=== PATIENT | female | born 1990 | race Caucasian/White ===

== ENCOUNTER 2023-06-23 21:09 | Inpatient (IN) | payer MEDICAID ==
[~2023-06-23] VITALS: Ht 167.6 cm; Wt 113.6 kg
[~2023-06-23 21:09] MED LIST: NO HOME MEDS
[2023-06-23 21:39] LABS: BASOPHILS % (AUTO) 0.3 % (0-1); EOSINOPHILS # (AUTO) 0.1 X10'3 (0-0.9); EOSINOPHILS % (AUTO) 1.5 % (0-6); HEMATOCRIT 35.1 % (35.0-45.0); HEMOGLOBIN 11.9 g/dl (12.0-16.0); LYMPHOCYTES # (AUTO) 1.5 X10'3 (1.1-4.8); LYMPHOCYTES % (AUTO) 17.2 % (21-51); MEAN CORPUSCULAR HEMOGLOBIN 30.1 PG (27.0-31.0); MEAN CORPUSCULAR HGB CONC 33.9 g/dL (33.0-36.5); MEAN PLATELET VOLUME 7.4 FL (7.4-10.4); MONOCYTES # (AUTO) 0.7 X10'3 (0-0.9); NEUTROPHILS # (AUTO) 6.5 X10'3 (1.8-7.7); PLATELET COUNT 259 X10'3 (140-440); RED BLOOD COUNT 3.94 X10'6 (4.20-5.60)
[2023-06-23 21:52] LABS: ALANINE AMINOTRANSFERASE 19 U/L (12-78); ALBUMIN/GLOBULIN RATIO 0.7 (1.1-1.5); ALKALINE PHOSPHATASE 90 IU/L (46-116); ANION GAP 10 (8-16); ASPARTATE AMINO TRANSFERASE 13 U/L (10-37); BILIRUBIN,TOTAL 0.4 MG/DL (0.1-1.0); BLOOD UREA NITROGEN 26 MG/DL (7-18); BUN/CREATININE RATIO 25.5 (10.0-20.0); CALCIUM 9.2 MG/DL (8.5-10.1); CHLORIDE 105 MMOL/L (99-107); CREATININE 1.02 MG/DL (0.40-0.90); GLUCOSE 94 MG/DL (70-104); POTASSIUM 3.9 MMOL/L (3.5-5.1); SODIUM 144 MMOL/L (135-145); TOTAL CARBON DIOXIDE 29.5 MMOL/L (24-32); TOTAL PROTEIN 7.5 G/DL (6.4-8.2); eGFR 64 ML/MIN
[2023-06-23] MEDS ORDERED: buprenorphine/naloxone 8MG-2MG SUBlingual film SL STA (23:42)
[2023-06-24] MEDS ORDERED: ondansetron/PF 4mg/2ml inj IV PRN (00:15)
[2023-06-24] MEDS ORDERED: potassium Cl 40MEQ/1/2NS 520ml 520 ML IV PRN (00:15)
[2023-06-24] MEDS ORDERED: magnesium Cl slow-release 64mg tablet PO PRN (00:15)
[2023-06-24] MEDS ORDERED: HYDROcodone/acetaminophen 10/325mg tab PO PRN (00:15)
[2023-06-24] MEDS ORDERED: acetaminophen 325mg tablet PO PRN ×2 (00:15)
[2023-06-24] MEDS ORDERED: potassium Cl 20 mEq SR tablet PO PRN ×2 (00:15)
[2023-06-24] MEDS ORDERED: magnesium hydroxide 30ml (MOM) UD suspension PO PRN (00:15)
[2023-06-24] MEDS ORDERED: magnesium 4gm in 100ml NS 100 ML IV PRN (00:15)
[2023-06-24] MEDS ORDERED: normal saline 1000ml 1,000 ML IV SCH (00:15)
[2023-06-24] MEDS ORDERED: bisacodyl 10mg suppository rectal RC PRN (00:15)
[2023-06-24] MEDS ORDERED: HYDROcodone/acetaminophen 5mg/325mg tablet PO PRN (00:15)
[2023-06-24] MEDS ORDERED: magnesium 2GM in 50ml NS 50 ML IV PRN (00:15)
[2023-06-24] MEDS ORDERED: morphine 2 MG/ML inj. syringe IV PRN ×2 (00:15)
[2023-06-24] MEDS ORDERED: LORazepam 2 mg/ml vial IV ONE (00:35)
[2023-06-24] MEDS ORDERED: VANCOmycin 1250MG/NS 250ml Bag 250 ML IV SCH (01:00)
--- NOTE | 2023-06-24 06:24 | NUR ---
ATTEMPTED TO CALL REPORT FLOOR NURSE UNAVAILABLE
--- NOTE | 2023-06-24 06:40 | NUR ---
SECOND ATTEMPT TO CALL REPORT, NURSE UNAVAILABLE TO TAKE REPORT
[2023-06-24 07:10] VITALS: BP 145/95; PULSE 67; RESP 18; TEMP 98.3; O2SAT 100
[2023-06-24 07:35] VITALS: RESP 20
[2023-06-24 10:00] VITALS: BP 168/83; PULSE 80; RESP 18; TEMP 97; O2SAT 100
[2023-06-24] MEDS: buprenorphine/naloxone 8MG-2MG SUBlingual film SL SCH (10:08)
[2023-06-24] MEDS: linezolid 600mg tablet PO SCH ×2 (16:35→19:31)
[2023-06-24 18:00] VITALS: BP 158/94; PULSE 78; RESP 20; TEMP 98.3; O2SAT 100
--- NOTE | 2023-06-24 18:30 | NUR ---
Report to Gu[facility]
[2023-06-24] MEDS ORDERED: enoxaparin 40mg/0.4ml syringe SQ SCH (20:00)
[2023-06-24] MEDS ORDERED: temazepam 15mg capsule PO PRN (21:00)
[2023-06-24 22:00] VITALS: BP 128/77; PULSE 82; RESP 18; TEMP 98.1; O2SAT 100
--- NOTE | 2023-06-25 02:54 | NUR ---
CERTIFIED HOME HEALTH AIDE documentation: I have reviewed and agree with assessment performed and documented by TAMICA.
[2023-06-25 06:00] VITALS: BP 167/111; PULSE 76; RESP 18; TEMP 98.2; O2SAT 100
[2023-06-25 06:05] LABS: BASOPHILS % (AUTO) 0.5 % (0-1); EOSINOPHILS # (AUTO) 0.1 X10'3 (0-0.9); EOSINOPHILS % (AUTO) 1.2 % (0-6); HEMOGLOBIN 12.1 g/dl (12.0-16.0); LYMPHOCYTES # (AUTO) 1.4 X10'3 (1.1-4.8); LYMPHOCYTES % (AUTO) 18.6 % (21-51); MEAN CORPUSCULAR HEMOGLOBIN 30.1 PG (27.0-31.0); MEAN CORPUSCULAR HGB CONC 33.7 g/dL (33.0-36.5); MEAN CORPUSCULAR VOLUME 89.2 FL (78-98); MONOCYTES # (AUTO) 0.7 X10'3 (0-0.9); MONOCYTES % (AUTO) 8.5 % (2-12); NEUTROPHILS # (AUTO) 5.5 X10'3 (1.8-7.7); NEUTROPHILS % (AUTO) 71.2 % (42-75); PLATELET COUNT 249 X10'3 (140-440); RED BLOOD COUNT 4.03 X10'6 (4.20-5.60); RED CELL DISTRIBUTION WIDTH 13.8 % (11.5-14.5); WHITE BLOOD COUNT 7.7 X10'3 (4.5-11.0)
[2023-06-25 06:22] LABS: ALANINE AMINOTRANSFERASE 14 U/L (12-78); ALBUMIN 2.6 G/DL (3.4-5.0); ALBUMIN/GLOBULIN RATIO 0.6 (1.1-1.5); ALKALINE PHOSPHATASE 84 IU/L (46-116); ANION GAP 6 (8-16); ASPARTATE AMINO TRANSFERASE 18 U/L (10-37); BILIRUBIN,TOTAL 0.7 MG/DL (0.1-1.0); BLOOD UREA NITROGEN 16 MG/DL (7-18); BUN/CREATININE RATIO 20.5 (10.0-20.0); CALCIUM 8.6 MG/DL (8.5-10.1); CHLORIDE 102 MMOL/L (99-107); CREATININE 0.78 MG/DL (0.40-0.90); GLUCOSE 92 MG/DL (70-104); SODIUM 139 MMOL/L (135-145); TOTAL CARBON DIOXIDE 31.2 MMOL/L (24-32); TOTAL PROTEIN 6.8 G/DL (6.4-8.2); eGFR 87 ML/MIN
[2023-06-25] MEDS: linezolid 600mg tablet PO SCH ×2 (07:07→17:54)
[2023-06-25 07:15] VITALS: RESP 20; O2SAT 99
[2023-06-25] MEDS: buprenorphine/naloxone 8MG-2MG SUBlingual film SL SCH (08:00)
[2023-06-25] MEDS ORDERED: metoprolol succinate 25mg (24-HOUR) SR. Tablet PO SCH (08:00)
[2023-06-25 10:00] VITALS: BP 156/103; PULSE 98; RESP 20; TEMP 98.2; O2SAT 99
[2023-06-25] MEDS ORDERED: LORazepam 2 mg/ml vial IV ONE (10:30)
[2023-06-25 12:00] VITALS: BP 162/119
[2023-06-25 12:10] VITALS: BP 132/95
--- NOTE | 2023-06-25 12:10 | NUR ---
Jim consult: Pt with a history of homelessness, polysubstance abuse, and previously left AMA 06/16 per EMR. Pt visualized at bedside with a sheet over her face. RN instructed to not wake up the patient as she is in alot of pain and going through possible withdrawal symptoms. Low tyramine diet deferred at this time. Will continue to follow. Addendum: 06/25/23 at [address] Amended: Links added. Addendum: 06/25/23 at [address] PAU has reviewed and approves of above note.
[2023-06-25] MEDS ORDERED: METO-395 PO ×2 (13:59→16:31)
[2023-06-25] MEDS ORDERED: BUPR1FIL3 SL (13:59)
[2023-06-25] MEDS ORDERED: LINE600T14 PO (13:59)
[2023-06-25] MEDS ORDERED: AMLO10TA13 PO (16:37)
[2023-06-25] MEDS ORDERED: amLODIPine 5mg tablet PO ONE (16:45)
[2023-06-25 17:04] VITALS: BP_SYST 168; PULSE 95
[2023-06-27] MEDS ORDERED: VANCOMYCIN LEVEL IV ONE (00:30)
== END 2023-06-25 19:03 | disposition home or self-care (01) | DRG 383 ==
LOC: ER 21:09 → ED HOLD 06-24 00:20 → ORTHO 4S 06-24 07:00
PROVIDERS: ADMIT Internal Medicine; ATTEND Family Medicine
DX: L03.115 Cellulitis of right lower limb (principal); N17.9 Acute kidney failure, unspecified; F15.90 Other stimulant use, unspecified, uncomplicated; I10 Essential (primary) hypertension; I25.10 Atherosclerotic heart disease of native coronary artery without angina pectoris; Z53.29 Procedure and treatment not carried out because of patient's decision for other reasons; F19.10 Other psychoactive substance abuse, uncomplicated; Z68.41 Body mass index [BMI] 40.0-44.9, adult; E66.01 Morbid (severe) obesity due to excess calories; Z82.49 Family history of ischemic heart disease and other diseases of the circulatory system; Z87.891 Personal history of nicotine dependence; Z88.0 Allergy status to penicillin
CPT/HCPCS: 36415; 71045; 80053; 83605; 83880; 84484; 85025; 87040; 97161; 99285; A4615; G0378; J1650; J2060; J3370; J7030